=== PATIENT | female | born 1945 | race Caucasian/White ===

== ENCOUNTER 2023-08-29 16:08 | Emergency (ER) | payer MEDICARE, OTHER, SELFPAY ==
[2023-08-29 16:20] VITALS: BP 134/74; PULSE 81; RESP 20; TEMP 36.6; O2SAT 97; BMI 26.0
--- NOTE | 2023-08-29 17:42 | ED.EXTPRO1 ---
Documented by User: Belinda Guerraey 08/29/23 17:52 HPI - Extremity Problem General Chief complaint: Extremity Problem, Nontraumatic Stated complaint: LUMP right leg Time Seen by Provider: 08/29/23 17:35 Source: patient Mode of arrival: walk-in Limitations: no limitations History of Present Illness HPI Narrative: 78-year-old female presents here with a chief complaint of a bruise to the right lower pardo region. She states when she got out of the shower earlier today and she noticed a lump on her leg. She does take eloquis for CAD, coronary artery disease She has no acute bleeding elsewhere. She was concerned because she has swelling to the anterior portion of her pardo. Since waiting in the emergency room today swelling has decreased in size that she feels better. She has no pain. She has no other complaints. She states she wanted confirmation that her leg was fine. Related Data Allergies Allergy/AdvReac Type Severity Reaction Status Date / Time Penicillins Allergy Severe Verified 08/29/23 16:19 Review of Systems ROS Narrative All Systems are negative except as noted/marked.All systems reviewed and otherwise negative PFSH PFSH Social History Smoking status: Former smoker Exam Narrative Exam Narrative: Nurses note and vital signs reviewed and patient is not hypoxic. General: The patient appears well and in no apparent distress. Patient is resting comfortably on cart. Skin: Warm, dry, no pallor noted. ecchymosis to anterior pardo. Head: Normocephalic, atraumatic Cardiovascular: Regular Rate and Rhythm Respiratory: Patient is in no distress, no accessory muscle use, lungs are clear to auscultation, no wheezing, rales or rhonchi Musculoskeletal: swelling to right anterior pardo, consistent with hemotoma, bruise, no calf pain tenderness or swelling. The patient has no evidence of calf tenderness, no pitting edema, symmetrical pulses noted bilaterally Neurological: A&O x4, normal speech Psychiatric: Cooperative Constitutional Vital Signs, click to edit/add: Last Vital Signs Temp 98 F 08/29/23 16:20 Pulse 81 08/29/23 16:20 Resp 20 08/29/23 16:20 BP 134/74 08/29/23 16:20 Pulse Ox 97 08/29/23 16:20 O2 Del Method Room Air 08/29/23 16:20 Course Vital Signs Vital signs: Vital Signs Temperature 98 F 08/29/23 16:20 Pulse Rate 81 08/29/23 16:20 Respiratory Rate 20 08/29/23 16:20 Blood Pressure 134/74 08/29/23 16:20 Pulse Oximetry 97 08/29/23 16:20 Oxygen Delivery Method Room Air 08/29/23 16:20 Temperature 98 F 08/29/23 16:20 Pulse Rate 81 08/29/23 16:20 Respiratory Rate 20 08/29/23 16:20 Blood Pressure 134/74 08/29/23 16:20 Pulse Oximetry 97 08/29/23 16:20 Oxygen Delivery Method Room Air 08/29/23 16:20 MDM - Extremity (Nontraumatic) MDM Narrative Medical decision making narrative: 78-year-old female is visiting from out of town and states she was concerned when she noticed swelling to the anterior pardo. She is on eloquis. She states she was getting out of the shower and noticed a small bruising to her anterior pardo. Since being here in the emergency room for past hour, , the swelling has improved. Patient feels well. She's had no other injury, trauma bruising or bleeding. Remainder extremity looks within normal limits. Superficial hematoma, ecchymosis is noted to right anterior pardo measuring approx 1cm, ciruclar in size. She has no pain to the extremity. No calf pain tenderness or swelling. She stable be discharged home. She'll be given instructions for hematoma, bruising. Patient told she may keep the leg elevated and use ice this evening. Patient verbalizes understanding resupply of care. Discharge Plan Discharge Chief Complaint: Extremity Problem, Nontraumatic Clinical Impression: Hematoma of leg Patient Disposition: Home, Self-Care Time of Disposition Decision: 17:41 Condition: Good Mode of Transportation: Private Vehicle Instructions: Contusion in Adults (ED) Stand Alone Forms: Portal Instructions Referrals: Derrick Das DO [Primary Care Provider] - 1 week Discharge Date/Time: 08/29/23 17:48 Documented by User: Aristides Choudhury MD 08/29/23 20:33 HPI - Extremity Problem General Chief complaint: Extremity Problem, Nontraumatic Stated complaint: LUMP right leg Time Seen by Provider: 08/29/23 17:35 Related Data Allergies Allergy/AdvReac Type Severity Reaction Status Date / Time Penicillins Allergy Severe Verified 08/29/23 16:19 PFSH PFSH Social History Smoking status: Former smoker Exam Constitutional Vital Signs, click to edit/add: Last Vital Signs Temp 98 F 08/29/23 16:20 Pulse 81 08/29/23 16:20 Resp 20 08/29/23 16:20 BP 134/74 08/29/23 16:20 Pulse Ox 97 08/29/23 16:20 O2 Del Method Room Air 08/29/23 16:20 Course Vital Signs Vital signs: Vital Signs Temperature 98 F 08/29/23 16:20 Pulse Rate 81 08/29/23 16:20 Respiratory Rate 20 08/29/23 16:20 Blood Pressure 134/74 08/29/23 16:20 Pulse Oximetry 97 08/29/23 16:20 Oxygen Delivery Method Room Air 08/29/23 16:20 Temperature 98 F 08/29/23 16:20 Pulse Rate 81 08/29/23 16:20 Respiratory Rate 20 08/29/23 16:20 Blood Pressure 134/74 08/29/23 16:20 Pulse Oximetry 97 08/29/23 16:20 Oxygen Delivery Method Room Air 08/29/23 16:20 MDM - Extremity (Nontraumatic) MDM Narrative Medical decision making narrative: 78-year-old female is visiting from out of town and states she was concerned when she noticed swelling to the anterior pardo. She is on eloquis. She states she was getting out of the shower and noticed a small bruising to her anterior pardo. Since being here in the emergency room for past hour, , the swelling has improved. Patient feels well. She's had no other injury, trauma bruising or bleeding. Remainder extremity looks within normal limits. Superficial hematoma, ecchymosis is noted to right anterior pardo measuring approx 1cm, ciruclar in size. She has no pain to the extremity. No calf pain tenderness or swelling. She stable be discharged home. She'll be given instructions for hematoma, bruising. Patient told she may keep the leg elevated and use ice this evening. Patient verbalizes understanding resupply of care. I, Dr Choudhury, have reviewed the above progress note and course of action in the ER; agree with the above. I have personally seen and evaluated this patient, gone over history and physical, and discussed disposition and treatment plan with the patient. Discharge Plan Discharge Chief Complaint: Extremity Problem, Nontraumatic Clinical Impression: Hematoma of leg Patient Disposition: Home, Self-Care Time of Disposition Decision: 17:41 Condition: Good Mode of Transportation: Private Vehicle Instructions: Contusion in Adults (ED) Stand Alone Forms: Portal Instructions Referrals: Derrick Das DO [Primary Care Provider] - 1 week Discharge Date/Time: 08/29/23 17:48
== END 2023-08-29 17:48 | disposition home or self-care (01) ==
PROVIDERS: Emergency Provider Emergency Medicine; PCP Family Medicine
DX: S80.11XA Contusion of right lower leg, initial encounter (principal); I25.10 Atherosclerotic heart disease of native coronary artery without angina pectoris; Z79.01 Long term (current) use of anticoagulants; Z87.891 Personal history of nicotine dependence
CPT/HCPCS: 99281

== ENCOUNTER 2025-08-25 19:35 | Emergency (ER) | payer OTHER, MEDICAID, SELFPAY ==
[2025-08-25 20:06] VITALS: BP 157/72; PULSE 67; TEMP 37.1; O2SAT 99; BMI 26.0
--- NOTE | 2025-08-25 20:35 | XR_ITS ---
The [address] [address] Patient Name: LUZ VELASQUEZ MRN: [id number] date: 1945 Sex: F Assigned Patient Location: ER Current Patient Location: Accession/Order Number: [id number] Exam Date: 08/25/2025 20:42 Report Date: 08/25/2025 21:10 At the request of: LEONOR SCHERER MD Procedure: XR knee LT 4V XR knee LT 4V 08/25/2025 8:55 PM SIGNS AND SYMPTOMS: ^fall, left knee pain, bruising PROTOCOL: Fall, left knee pain COMPARISON: None FINDINGS: There is narrowing of the weightbearing joint spaces with spurring greatest along the medial femoral condyle and medial tibial plateau. There is narrowing of the patellofemoral joint space with spurring at the superior pole of the patella. There is no fracture or dislocation. There is a 13 mm ossific loose body in the anterior aspect of the joint of the inferior pole of the patella. There is a small joint effusion. No soft tissue swelling. Vascular calcifications are present. XR/XR knee LT 4V IMPRESSION: No fracture or dislocation. Tricompartmental degenerative changes are noted with a small joint effusion. There is a 13 mm ossific loose body in the anterior aspect of the joint of the inferior pole of the patella. Impression dictated by: Delroy Caruso M.D. 08/25/2025 9:10 PM Dictation Location: [place] [address] Electronically authenticated by: [id number] Y Date: 08/25/2025 21:10
--- NOTE | 2025-08-25 20:35 | CT_ITS ---
The [address] [address] Patient Name: LUZ VELASQUEZ MRN: [id number] date: 1945 Sex: F Assigned Patient Location: ER Current Patient Location: Accession/Order Number: [id number] Exam Date: 08/25/2025 20:42 Report Date: 08/25/2025 21:14 At the request of: LEONOR SCHERER MD Procedure: CT head/brain wo con CT head/brain wo con 08/25/2025 8:55 PM SIGNS AND SYMPTOMS: ^fall, hit face on pavement TECHNIQUE:Multi-detector CT axial slices of the brain were obtained without IV contrast. CT was performed with one or more of the following dose reduction techniques: Automated exposure control, adjustment of the mA and/or kV according to patient size, or use of iterative reconstruction technique. COMPARISON: None. FINDINGS: There is no shift of the midline structures, acute intracranial bleeding, mass effects, or evidence of acute ischemia. Atherosclerotic changes are noted in the V4 segments of the vertebral arteries and intracranial segments of the internal carotid arteries. There is age-related cortical atrophy with periventricular white matter hypoattenuation. The ventricular system is normal in size. The brainstem and the cerebellum are unremarkable. The visualized intraorbital contents, the visualized paranasal sinuses, and the infratemporal soft tissues show no acute abnormality. The osseous structures in the skull base and the calvarium show no abnormality. CT/CT head/brain wo con IMPRESSION: No acute intracranial pathology. Chronic age-related neurodegenerative changes are noted as above. Impression dictated by: Delroy Caruso M.D. 08/25/2025 9:14 PM Dictation Location: [place] [address] Electronically authenticated by: [id number] Y Date: 08/25/2025 21:14
--- NOTE | 2025-08-25 20:36 | CT_ITS ---
The [address] [address] Patient Name: LUZ VELASQUEZ MRN: [id number] date: 1945 Sex: F Assigned Patient Location: ER Current Patient Location: Accession/Order Number: [id number] Exam Date: 08/25/2025 20:42 Report Date: 08/25/2025 21:21 At the request of: LEONOR SCHERER MD Procedure: CT cervical spine wo con CT cervical spine wo con 08/25/2025 8:55 PM SIGN AND SYMPTOMS: ^fall, head injury TECHNIQUE: Multi detector CT axial slices of the cervical spine were obtained without IV contrast. Volumetric acquisition sagittal, coronal, and 3-D reconstructions were performed and reviewed. CT was performed with one or more of the following dose reduction techniques: Automated exposure control, adjustment of the mA and/or kV according to patient size, or use of iterative reconstruction technique. COMPARISON: None. FINDINGS: There is preservation of the vertebral body heights. There is mild disc height loss at C3-C4 with moderate disc height loss at C5-C6. There is facet hypertrophy with uncovertebral joint spurring. There is a partially calcified central disc protrusion at C3-C4. No fractures or dislocations are seen. The alignment of the cervical spine is normal. The craniocervical junction is within normal limits. Degenerative changes are noted in the atlantoaxial joint. There is thickening of the transverse ligament with chondrocalcinosis suggesting underlying CPPD. The prevertebral soft tissues are within normal limits. The paraspinous soft tissues are within normal limits. Calcified plaque is noted in the carotid bifurcations. The lung apices are unremarkable. CT/CT cervical spine wo con IMPRESSION: No fracture or subluxation. Degenerative changes are noted as above. Impression dictated by: Delroy Caruso M.D. 08/25/2025 9:21 PM Dictation Location: [place] [address] Electronically authenticated by: [id number] Y Date: 08/25/2025 21:21
--- NOTE | 2025-08-25 20:37 | ED.HEATRA1 ---
HPI HPI - Head Injury General Chief complaint: Fall Stated complaint: Fall Time Seen by Provider: 08/25/25 20:30 Source: patient Mode of arrival: walk-in Limitations: no limitations History of Present Illness HPI Narrative: This 80-year-old female who is on Eliquis due to a history of heart failure is brought to the emergency department by her daughter. The patient was coming out of her house tonight and missed a step falling and striking the right side of her face on concrete. She was wearing glasses at the time. She has a contusion over the bridge of her nose and some right sided periorbital tenderness. She denies any loss of consciousness. She could not get up independently and crawled back into the house where her daughter helped her up onto the couch. She did fall on her right knee and has some bruising to the right knee as well. She is ambulatory with a walker. She denies any chest pain or shortness of breath. She denies any dizziness leading to her fall. Related Data Home Medications ?Medication ?Instructions ?Recorded ?Confirmed acetaminophen 500 mg tablet 500 mg PO Q6H PRN pain 08/25/25 08/25/25 (Tylenol Extra Strength) alprazolam 0.5 mg tablet mg 08/25/25 apixaban 5 mg tablet (Eliquis) mg 08/25/25 clopidogrel 75 mg tablet mg 08/25/25 famotidine 20 mg tablet (Pepcid) 20 mg PO DAILY 08/25/25 08/25/25 furosemide 40 mg tablet mg 08/25/25 levothyroxine 25 mcg tablet mcg 08/25/25 metoprolol succinate 50 mg mg PO 08/25/25 tablet,extended release 24 hr nicotine 14 mg/24 hr daily 1 patch transdermal DAILY 08/25/25 08/25/25 transdermal patch ondansetron 4 mg disintegrating mg 08/25/25 tablet potassium chloride 20 mEq meq PO 08/25/25 tablet,extended release(part/cryst) pravastatin 40 mg tablet mg 08/25/25 sacubitril 97 mg-valsartan 103 mg tab 08/25/25 tablet Allergies Allergy/AdvReac Type Severity Reaction Status Date / Time Penicillins Allergy Severe Rash Verified 08/25/25 20:06 erythromycin base Allergy Mild Difficulty Verified 08/25/25 20:06 Breathing albuterol Allergy heart Verified 08/25/25 20:06 racing atorvastatin Allergy muscle pain Verified 08/25/25 20:06 ciprofloxacin Allergy Abdominal Verified 08/25/25 20:06 Pain hydrocodone Allergy Vomiting Verified 08/25/25 20:06 meperidine Allergy vomiting Verified 08/25/25 20:06 simvastatin Allergy muscle pain Verified 08/25/25 20:06 Sulfa (Sulfonamide Allergy hives Verified 08/25/25 20:06 Antibiotics) Opioid HPI Opioid Management Most Recent Pain and Opioid Data: Last Pain Scale 5 Today, 20:06 Review of Systems ROS Status of ROS 10 or more systems reviewed and unremarkable except as noted in history and below [facility] Social History Smoking status: Former smoker Little interest or pleasure in doing things: not at all Feeling down, depressed, or hopeless: not at all Exam Narrative Exam Narrative: Vital signs and Nursing Notes reviewed: Patient is afebrile with a normal pulse, blood pressure is mildly elevated 157/72, she is not hypoxic with pulse ox of 99% on room air General: Awake, alert, oriented, no acute distress, ambulatory with a walker, GCS 15 HEENT: Normocephalic, small abrasion of the bridge of the nose and mild right periorbital tenderness without ecchymosis or notable bruising, extraocular muscles are intact, no nasal bleeding, no dental injury Neck: Supple, no midline bony vertebral tenderness or step-off Chest: Lungs are clear to auscultation with good air entry, there is no wheezing rhonchi or rales appreciated no accessory muscle use, patient is speaking in complete sentences-no chest wall tenderness to palpation CVS: Regular rate and rhythm S1-S2, no murmurs rubs or gallops, pulses are brisk and equal bilaterally ABD: Soft, nondistended, nontender, no rebound guarding or rigidity, bowel sounds are normal, no pulsatile masses appreciated Extremities: Moving all extremities, patient completely flexes her right knee to get onto the stretcher. There is no right knee tenderness or notable deformity. She has tenderness to the left anterior knee with mild bruising. Knee joint is stable with no bony deformity. Skin: Normal in appearance without rash,pallor, petechiae or purpura Neuro: No focal deficits Constitutional Vital Signs, click to edit/add: Last Vital Signs Temp 98.7 F 08/25/25 20:06 Pulse 67 08/25/25 20:06 Resp 18 08/25/25 20:06 BP 157/72 H 08/25/25 20:06 Pulse Ox 99 08/25/25 20:06 O2 Del Method Room Air 08/25/25 20:06 Course Vital Signs Vital signs: Vital Signs Temperature 98.7 F 08/25/25 20:06 Pulse Rate 67 08/25/25 20:06 Respiratory Rate 18 08/25/25 20:06 Blood Pressure 157/72 H 08/25/25 20:06 Pulse Oximetry 99 08/25/25 20:06 Oxygen Delivery Method Room Air 08/25/25 20:06 Temperature 98.7 F 08/25/25 20:06 Pulse Rate 67 08/25/25 20:06 Respiratory Rate 18 08/25/25 20:06 Blood Pressure 157/72 H 08/25/25 20:06 Pulse Oximetry 99 08/25/25 20:06 Oxygen Delivery Method Room Air 08/25/25 20:06 MDM - Head Injury MDM Narrative Medical decision making narrative: This 80-year-old female with a history of heart disease who is on Eliquis is brought to the emergency department by her daughter after she fell going down a stair outside at her house. She states she forgot the stair was there and fell forward striking her face on the concrete. She was wearing her glasses at the time and has some right periorbital tenderness. She also has some left knee tenderness and bruising. She denies any loss of consciousness. Her neuroexam is normal. She was ambulatory to room 7 with her walker. She was medicated with Tylenol and CT scan of the head, cervical spine and x-ray of the left knee was ordered. CT scan of the head and neck is negative for acute findings and x-ray of the left knee shows no acute fracture but loose body posteriorly. Her left knee was placed in an Goyo wrap for comfort. The patient states that she has a prior history of a knee injury to the left knee. She remained ambulatory in the emergency department and was discharged home with her son. Head injury instructions were given to the patient and her family. Imaging Data CT scan - head: Radiologist's impression: ITS Impressions Head CT 08/25/25 20:35 IMPRESSION: No acute intracranial pathology. Chronic age-related neurodegenerative changes are noted as above. Impression dictated by: Delroy Caruso M.D. 08/25/2025 9:14 PM Dictation Location: [facility] Electronically authenticated by: [id number] Y Date: 08/25/2025 21:14 Knee X-Ray 08/25/25 20:35 IMPRESSION: No fracture or dislocation. Tricompartmental degenerative changes are noted with a small joint effusion. There is a 13 mm ossific loose body in the anterior aspect of the joint of the inferior pole of the patella. Impression dictated by: Delroy Caruso M.D. 08/25/2025 9:10 PM Dictation Location: [facility] Electronically authenticated by: [id number] Y Date: 08/25/2025 21:[address] 08/25/25 20:36 IMPRESSION: No fracture or subluxation. Degenerative changes are noted as above. Impression dictated by: Delroy Caruso M.D. 08/25/2025 9:21 PM Dictation Location: [facility] Electronically authenticated by: [id number] Y Date: 08/25/2025 21:21 Discharge Plan Discharge Chief Complaint: Fall Clinical Impression: Fall from standing, Contusion of face, Contusion of knee Patient Disposition: Home, Self-Care Time of Disposition Decision: 21:51 Condition: Good Prescriptions / Home Meds: No Action furosemide 40 mg tablet pravastatin 40 mg tablet metoprolol succinate 50 mg tablet extended release 24 hr PO clopidogrel 75 mg tablet levothyroxine 25 mcg tablet alprazolam 0.5 mg tablet potassium chloride 20 mEq tablet,ER particles/crystals PO ondansetron 4 mg tablet,disintegrating Eliquis 5 mg tablet sacubitril-valsartan 97-103 mg tablet famotidine [Pepcid] 20 mg tablet 20 mg PO DAILY nicotine 14 mg/24 hr patch 24 hour 1 patch transdermal DAILY acetaminophen [Tylenol Extra Strength] 500 mg tablet 500 mg PO Q6H PRN (Reason: pain) Print Language: Amharic Instructions: Fall Prevention for Older Adults (ED), Contusion in Adults (ED), Facial Contusion (ED) Referrals: Derrick Das DO [Primary Care Provider] - 1 week Discharge Date/Time: 08/25/25 21:59
--- OUTSIDE RECORDS SUMMARY | 2025-08-25 21:35 | XMS_ITS | Clinical Summary ---
Author Organization [facility] Address [address] [place] [id number] Care Team Providers Care Registered Radiologic Technologist Name Role Phone TyrellDerrick martin Renetta MOREIRA Primary Care Provider [phone] Teodoro Cueva MD Unavailable Breana Kunz MD Unavailable Allergies Active AllergyReactionsCriticalityNoted DateCommentsAlbuterolOther: See Comments 05/08/2021 shaking, nervous, mental status changes CiprofloxacinGI Upset05/08/2021Meperidine (Pf)Wbfehkvu98/07/2012Erythromycin Shortness of Scbxtv5205/15/2012Hydrocodone-DqjaqaarqtvauGulrcspj36/07/2012 Atorvastatin CalciumOther: See Llofdtpo60/07/2012 back muscles tightened up WfdpmyplUgjxxddr95/07/2012Penicillin GRash05/01/2012Sulfa (Sulfonamide Antibiotics)Hives05/16/2012SimvastatinOther: See Ugbomrxl90/07/2012 back muscles tighten up Medications MedicationSigDispense QuantityRefillsLast FilledStart DateEnd DateStatus sucralfate (CARAFATE) 1 gram tablet Take 1 tablet by mouth once daily.07/17/2021ctive nicotine (NICODERM) 21 mg/24 hr Apply 1 Patch as directed every 24 hours.07/17/2021ctive levothyroxine (SYNTHROID) 25 mcg tablet Take 0.5 tablets by mouth DAILY (6 AM). 30 tablet 10/13/2021ctive CPAP/BIPAP/OTHER Type .CPAPSettings into a note to see current settings/supplies/DME information. 1 Each /03/2050Active ALPRAZolam (XANAX) 0.5 mg tablet Take 0.5 mg by mouth four times daily.4Active ACETAMINOPHEN, BULK, MISC as needed.Active pravastatin (PRAVACHOL) 80 mg tablet Indications:Hyperlipidemia with target low density lipoprotein (LDL) cholesterol less than 70 mg/dLTake 1 tablet by mouth daily at bedtime. 90 tablet 503/6Active sacubitril-valsartan (ENTRESTO) 97-103 mg tablet Indications:Chronic diastolic heart failure (HCC)Take 1 tablet by mouth two times a day. 180 tablet 5Active metoprolol succinate ER (TOPROL XL) 50 mg 24 hr tablet Indications:Chronic diastolic heart failure (HCC)Take 1 tablet by mouth two times a day. 60 tablet 1105Active potassium chloride ER (KLOR-CON M20) 20 mEq tablet Indications:Chronic diastolic heart failure (HCC)Take 1 tablet by mouth once daily. 90 tablet 5Active clopidogrel (PLAVIX) 75 mg tablet Indications:Coronary artery disease involving redding coronary artery of redding heart, unspecified whether angina presentTake 1 tablet by mouth once daily. 90 tablet 5Active apixaban (ELIQUIS) 5 mg tab(s) Take 1 tablet by mouth two times a day. 180 tablet 5Active multivitamin tablet Take 1 tablet by mouth once daily.Active furosemide (LASIX) 40 mg tablet Indications:Chronic diastolic heart failure (HCC)Take 1 tablet by mouth once daily. 90 tablet 5Active Active Problems Patient Care Coordination No te Formatting of this note migh t be different from the original. Presentation/Indication for admission/procedure: NSTEMI (non-ST elevated myocardial infarction) ([facility]) [I21.4] Admit date: 10/09/2021 LVEF: 45% RVEF: mild Cards: baljit Cath: PCI 01/26 PMH/PSH: HTN, HLD, paroxysmal AF s/p PVI 07/19/21, CAD s/p prior CABG (2003 with YEAGER-LAD, SVG-LCx,SVG-PDA followed by re-do in 2011 with ANITA-LCx, SVG-PDA) as well as multiple rounds of PCI, tobacco abuse, SARS CoV2 pneumonia in 05/2021 Covid: pos TSH: 2.3 A1c: 6.1 LDL: 156 NT: 7984 Procedure/OR performed (including complications): echocardiogram Brief Hospital Course/Narrative: pt presented to outside hospital with complaints of SOB and vomiting after taking a muscle relaxant. EMS arrived and noted that she was hypoxic. She was placed on BiPAP. In the ER she was tested for COVID which was positive. She was given IV lasix and started on decadron and remdisivir. HS trop waselevated and downtrended. Was transferred to [facility] for ? NSTEMI although had no chest pain. Issues to communicate: ID consulted and recommended holding meds, monitor resume entresto plan discharge on Friday follow up requested with DR Goff will need labs checked to monitor creat start torsemide ProblemNoted DateDiagnosed DateVapes nicotine containing zcmzlrkne47/10/2024 Chronic obstructive pulmonary csdmjsy93/02/2024Chronic rjqxyoomhavgtho00/09/2021 COVID-19 virus hijhpifu79/21/2021 Overview (10/13/2021): History: previous COVID pneumonia 05/29, not vaccinated Assessment: denies SOB although requiring oxygen Plan: hold on treatment monitor CHF (congestive heart failure)1Pulmonary insufficiency following ymtifdr5405/27/2012 Overview (05/29/2012): On 2L per NC, -481 ml/24 hrs, 65.2 kg (-3.5 kg preop). CXR 05/27 showed patchy poorly defined infiltrates, most likely secondary to atelectasis, persist at both lung bases, no pleural effusion or pneumothorax. On IV lasix, Will transition to PO lasix, Enc OOB, amb, C&DB, PEP. Xacxapgmtgjz18/13/2012 Overview (05/29/2012): WBC 16.02, stable. Afebrile. Infiltrates improving on CXR. ID consulted pt finished IV levequin, IDsigned off DVT (deep venous thrombosis)05/21/2012 Overview (05/29/2012): RIJ DVT seen in right during attempted central access. No AC at this time No further UE U/S per CTS after discussion w/ Dr. Johnson. AF (paroxysmal atrial fibrillation)05/20/2012 Overview (10/13/2021): had ablation 07/18/[address] Kunz remains SR cont toprol BID HTN (hypertension)05/19/2012 Overview (05/29/2012): PMHX of HTN, preop on BB, daniela, norvasc, isosorbide. Currently normotensive on lasix, BB. Will change lasix to PO GERD (gastroesophageal reflux disease)05/19/2012 Overview (05/29/2012): H/o GERD per patient requiring 3-4 pillows at hs, currently asymptomatic, on Protonix Panic yujttmu7105/19/2012 Overview (05/29/2012): Stated h/o panic attacks managed w/ Xanax at home, currently anxiety improved on scheduled xanax Carotid arterial snxdbvf9405/16/2012 Overview (05/29/2012): Pre-op studies LARISA 20-39%, LICA 60-79% w/ L SC 50-99%, on ASA, statin, Plavix PAD (peripheral artery disease)05/16/2012 Overview (05/29/2012): Pre-op CRISPIN: R 0.88, L 0.84 c/w mild PAD, ASA, smoking cessation, plavix S/P CABG (coronary artery bypass graft)05/01/2012 Overview (05/19/2012): See CAD NSTEMI (non-ST elevated myocardial infarction)05/01/2012 Overview (10/13/2021): per outside report based on cardiac enzymes. no EKG changes noted trop peaked at 0.076 denies any chsest pain likely not an PA, more likely flash pulmonary edema following vomiting S/P coronary artery stent stiukctxl65/24/2012 Overview (05/01/2012): SCOTTY of redding CX Eaxsnibfkmwl21/24/2012 Overview (05/23/2012): Home managed w/ metoprolol, low dose Lisinopril, Norvasc 10 and nitrates w/ Ranexa contribution. Continue PO Lopressor, uptitrate dose as tolerated Reassess Lisinopril and Norvasc as needed Lypwunmgcxqrsu02/24/2012 Overview (10/13/2021): History: previously on zocor, lipitor. was stopped d/t severe muscle pains. Assessment: Last set of lipids revealed: Total Chol 247: HDL 58: LDL 156: TG 163 Plan: cont crestor at 10 mg with plans to increase as tolerated as outpt. monitor lipids 6-8 wks Norqott4105/01/2012 Overview (10/13/2021): H/o 1ppd x 34yrs, had weaned to 5 cigarettes per day since PA in February, transitioned to electronic cigarettes just before surgery. Smoking cessation education, CAD (coronary artery disease), redding coronary bijygh2904/30/2012 Overview (10/13/2021): History: CAD s/p prior CABG (2002 with YEAGER-LAD, SVG-LCx, SVG-PDA followed by re-do in 2011 with ANITA-LCx, SVG-PDA) as well as multiple rounds of PCI Assessment: denies chest pain Plan: cont plavix,, BB Resolved Problems ProblemNoted DateDiagnosed DateResolved DateAcute on chronic systolic congestive heart /01/2024 Overview (10/13/2021): History: prior EF 55% in ~ 2011, reduced in 2019. on entresto, lasix, BB Assessment: no edema noted. Plan: cont BB, entresto start torsemide Malnutrition of mild jjmnat25/trial igdhwfyvpbos76/09/2021 06/20/2021UTI (urinary tract infection)/Nutrition deficiency due to insufficient food Overview (05/23/2012): Tolerating TF via [place] at goal rate, 45 cc/hr Nutrition consult Pneumothorax, acute Overview (05/21/2012): Small right apical. CT in place. Abixskf09 Overview (05/21/2012): Pt cont. to have low paO2. Now tolerating high flow face mask. Cont. int. Bipap. CXR mildly improved. Cont. aggressive BP hygiene. Wean O2 as joel. Post-op pain Overview (05/23/2012): 05/20: Severe pain secondary to chest tube placement. Well relieved with intermittent Dilaudid. IV Fentanyl gtt while intubated Patient nods yes to comfort on exam. Yrfkzi61 Overview (05/19/2012): Verbalizes severe nausea with IV narcotics. Cont. phenergan ATC and reglan with mod. relief. Respiratory failure, acute Overview (05/23/2012): Readmit to CVICU with hypoxia and acute respiratory failure 05/21. ETT, bronch, BAL, blood cultures and procalcitonin sent. Continue full vent support, FiO2 40%. Albuterol/Atrovent therapy Vent weaning trials WQHHGKF95 Overview (05/29/2012): Indication for Surgery: Symptomatic CAD Echo: Preop: LVEF 63% RVF: nml Postop: LVEF 60% RVF: nml PMH: CAD s/p CABG x 3 08/10: YEAGER>LAD, SVG>lat Cx, SVG>PDA; NSTEMI 03/07/12 OSH [facility] SCOTTY Cx; HTN, HPL, statin intolerant, current smoker 1 ppd x 34 yrs, recent electronic cigarette; PAD; GERD, Panic attacks. Surgery 05/18/2012: Re-do CABG x2: ANITA>lat Cx, SVG>PDA 05/20/2012: CMET activation on RNF for rapid AF, hypoxia, and PTX. Re-admitted to ICU CVICU: hypoxia with diff wean to extubate, a-fib (amio bolus), infiltrate on CXR, ID following Plan: -WBCs trending down, ID sign off, d/c levaquin 05/27 -Cont to wean O2, enc amb., -NSR, cont amio, inc BB, re-start plavix for SCOTTY, echo repeated per Dr. Meek -From [place], [place], solid waste facility operator for SNF, to be discharged later this PM (05/29) Stress fylwkizoxjvvo22 Overview (05/27/2012): On SSI req occasional coverage, cont to monitor BG Mechanically assisted svozimupqon37 Overview (05/18/2012): Current smoker. Will initiate bronchodilators as needed. Grade I airway. WTE once HD stable Preop hzluviw34 Overview (05/17/2012): Images from the original note were not included. [facility] PRE-OP CHECKLIST Surgeon: Adam Johnson M.D. Informed Consent Completed: completed STS Score: 1.4% CAD: Yes - CAD on Problem List: Yes Is intended procedure a CABG: Yes - is a beta goran ordered? Yes~toprol H & P completed: Yes PA/LAT: Completed CT:completed MRI: N/A LE US: N/A Cath: Yes - reviewed: Yes Echo:completed EKG: Completed EF %: na PI's: Completed Carotid: Completed Mapping: Pending Dental: N/A PFT's: Completed Basename 05/15/12 0812 WBC 8.53 HB 13.5 HCT 41.2 PLT 312 INR 1.0 CREAT -- UA: pos, culture: Culture : <10,000 CFU/ml Possible Enterococcus(*) <10,000 CFU/ml Normal Urogenital charlene (no treatment necessary). ABO/ABO Confirmed: Yes Blood ordered: Yes SA Swab: Yes - results: neg Last Dose of Anticoagulation: Plavix 05/12. Integrilin off at 2000 Op Note: N/A Pacemaker Check: N/A Consults: none DM: No Cardiac Surgical prep: N/A SIGNATURE: Kiki Bui MS, PA-C CHECKED BY: giuseppe bridges DATE of SERVICE: 05/15/2012 TIME of SERVICE: 1:51 PM Nhtesv91 Overview (05/17/2012): Apparently had UTI at OSH during stay in 03/07/2012 and had abx course. Has WBC and leukocyte esterase positive in urine now but is asx. Check urine culture to make sure this isn't sterile pyuria or a more resistant organism. Abx therapy per culture and sensitivities. 05/16: culture pending. Will hold off on ATBs until cultured Encounters DateTypeDepartmentCare EcanGcosryfubar27/24/2025Refill Cardiology [address] [place] [address] Beronica Leigh, MEMS ENGINEER.ORTHOPEDICALLY IMPAIRED TEACHER Refill Requestfrom Last 3 Months Family History Medical HistoryRelationCommentsCoronary Artery DiseaseBrotherCoronary stents[other]BrotherNo PA, aliveNo CAD[other]FatherCancerMotherNo CADRelation StatusCommentsBrotherAliveFatherDeceasedMotherDeceased Social History Tobacco UseTypesPacks/DayYears UsedDateSmoking Tobacco: LbbxwjSxceeitwtp407 05/18/1987 - 1Smokeless Tobacco: Never Tobacco Cessation:Counseling Given: Not Answered Comments:electronic cigarettes, 2 cigarettes per day Alcohol UseStandard Drinks/WeekCommentsNo0 (1 standard drink = 0.6 oz pure alcohol)Social Connection and Isolation PanelAnswerDate RecordedIn a typical week, how many times do you talk on the phone with family, friends, or neighbors?More than three times a week01/16/2023How often do you get together with friends or relatives?Once a week09/23/2022How often do you attend mosque or latter-day services?1 to 4 times per year09/23/2022o you belong to any clubs or organizations such as mosque groups, unions, fraternal or athletic groups, or school groups?Yes09/23/2022How often do you attend meetings of the clubs or organizations you belong to?1 to 4 times per year09/23/2022re you , , , , never , or living with a partner? 09/23/2022UDIT-CAnswerDate RecordedQ1: How often do you have a drink containing alcohol?Never09/23/2022Q2: How many drinks containing alcohol do you have on a typical day when you are drinking?Patient does not drink09/23/2022Q3: How often do you have six or more drinks on one occasion?Never09/23/2022Overall Financial Resource Strain (CARDIA)AnswerDate RecordedHow hard is it for you to pay for the very basics like food, housing, medical care, and heating?Hard09/23/2022HQ-2 AnswerDate RecordedPHQ-2 vlocz456Finjordan valley [facility] [place] of Occupational Health - Occupational Stress QuestionnaireAnswerDate RecordedDo you feel stress - tense, restless, nervous, or anxious, or unable to sleep at night because your mind is troubled all the time - these days?To some qgmplg3609/23/2022Exercise Vital SignAnswerDate RecordedOn average, how many days per week do you engage in moderate to strenuous exercise (like a brisk walk)?0 days09/23/2022On average, how many minutes do you engage in exercise at this level?0 min09/23/2022Hunger Vital SignAnswerDate RecordedWithin the past 12 months, you worried that your food would run out before you got the money to buymore.Sometimes true09/23/2022 Within the past 12 months, the food you bought just didn't last and you didn't have money to get more.Sometimes true09/23/2022RAPARE - TransportationAnswer Date RecordedIn the past 12 months, has lack of transportation kept you from medical appointments or from getting medications?No09/23/2022In the past 12 months, has lack of transportation kept you from meetings, work, or from getting things needed for daily living?No09/23/2022Housing Stability Vital SignAnswer Date RecordedIn the last 12 months, was there a time when you were not able to pay the mortgage or rent on time?No09/23/2022In the last 12 months, how many places have you lived?In the last 12 months, was there a time when you did not have a steady place to sleep or slept in ashelter (including now)?No 09/23/2022rea Deprivation IndexAnswerDate RecordedNational Score (1-100), lower number is lower jyvm812201/28/2023State Score (1-10), lower number is lower risk6 01/28/2023ata from: https://www.neighborhoodatlas.medicine.[facility].edu/. Last address used for [address] regnantCommentsNoSex and Gender InformationValueDate RecordedSex Assigned at MqyxhAjxxht54/21/2021 10:49 PM EDTLegal QbdQdmwuz42/02/2012 10:00 AM ESTGender IdentityFemale 06/28/2021 10:49 PM EDTSexual OrientationNot on file Last Filed Vital Signs Vital SignReadingTime TakenCommentsBlood Wvuigmfy472/8208 2:49 PM EDT Ykrqa132904/20/2025 2:49 PM VMECpussguktkj30 ??C (98.6 ??F)01/08/2024 3:43 PM EDT Respiratory Riye156610/13/2021 1:47 PM ESTOxygen Nklofcebsk10%04/20/2025 2:49 PM EDTInhaled Oxygen Concentration--Pwkmqc20 kg (156 lb 8.4 oz)04/20/2025 2:49 PM HLEKwrguc582.1 cm (5' 3.8 )09/16/2024 1:47 PM ESTBody Mass Index27.04009/16/2024 1:47 PM EST Plan of Treatment DateTypeDepartmentCare Team (Latest Contact Info)Hucjqxfiuhg06/12/2026 2:00 PM ESTOffice Visit Cardiology [id number] [facility] [place] [address] [place] [address] [facility] [place] [address] Bilateral carotid artery stenosis [I65.23]10/21/2025 2:30 PM ESTOffice Visit Cardiology [address] [facility] [place], [place] [phone] Nabil Goff, [address] [place], [place] [phone] Return in about 27 weeks (around 10/26/2025).Health MaintenanceDue DateLast Done CommentsDepression Ltjmiaqsk11/08/1964DTaP,Tdap,Td Vaccine (1 - Tdap)1965 Pneumococcal Vaccine: 50+ (1 of 2 - PCV)1965Shingrix Vaccine (1 of 2) 02/14/1996Bone Density Zoeismetu49/08/2011RSV Vaccine (1 - 1-dose 75+ series) 2021nnual PCP Team Chronic Disease Visit3Advance Directive Nvlttlsflh43/01/2025Medicare Advantage Annual Wellness Visit09/08/2024 Covid-19 Vaccine ( - season)2025Influenza Vaccine (#1)2025 12/21/2018LDL Nijklczptfs71/02/202609/10/2024, 04/07/2024, 12/14/2021, Additional history existsDiabetes Yaxaqxeyq85/31/74133612/06/2024, 04/07/2024, 03/12/2024, Additional history exists Procedures Procedure NamePriorityDate/TimeAssociated DiagnosisCommentsLIPID PANEL, FASTING Nhbuvut8105/10/2025 1:51 PM EDT Hyperlipidemia with target low density lipoprotein (LDL) cholesterol less than 70 mg/dL BASIC METABOLIC MEWDNLxyaicu46/31/2025 3:09 PM EDT Chronic diastolic heart failure (HCC) from Last 3 Months or Most Recently Relevant to Health Maintenance Results * (ABNORMAL) LIPID PANEL BASIC (05/10/2025 1:51 PM EDT)ComponentValueRef Range Test MethodAnalysis TimePerformed AtPathologist SignatureCholesterol, Ezyem671 <200 mg/dL05/11/2025 9:28 AM [facility]: <200 mg/dL, Desirable 200-239 mg/dL, Borderline high >239 mg/dL, High Ldjkwzhxhbrl78<150 mg/dL05/11/2025 9:28 AM [facility] Comment: <150 mg/dL, Normal 150-199 mg/dL, Borderline high 200-499 mg/dL, High >499 mg/dL, Very high HDL Plvhtbfhtot97>39 mg/dL05/11/2025 9:28 AM [facility] Comment: 40-59 mg/dL, Acceptable >59 mg/dL, High: Negative risk factor for coronary heart disease <40 mg/dL, Low: Positive risk factor for coronary heart disease LDL Cholesterol, Cgupqtnbmk231(H)<100 mg/dL05/11/2025 9:28 AM [facility] LABComment: <100 mg/dL, Optimal 100-129 mg/dL, Near optimal/above optimal 130-159 mg/dL, Borderline high 160-189 mg/dL, High >189 mg/dL, Very high Secondary prevention optimal LDL Cholesterol levels are recommended to be <70 mg/dL LDL cholesterol is calculated using the Molina-NIH equation. Non HDL Wybgraxtcne239(H)<130 mg/dL05/11/2025 9:28 AM [facility] LABComment: <130 mg/dL, Optimal 130-159 mg/dL, Near optimal/above optimal 160-189 mg/dL, Borderline high 190-219 mg/dL, High >219 mg/dL, Very high Secondary prevention optimal non HDL Cholesterol levels are recommended to be <100 mg/dL VLDL Ijtkcygxxbh65<30 mg/dL05/11/2025 9:28 AM [facility] LABTC:HDL Ratio3.96<5.10005/11/2025 9:28 AM [facility] LDL:HDL Ratio2.63(H)<2.54005/11/2025 9:28 AM [facility]TCD[facility] Comment: Reference: 1. National Cholesterol Education Program ATP III Guideline At-A-Glance Quick Desk Reference: National Heart, Lung, and Blood [place]. National Institutes of Health. 2001: NIH Publication No. 01-3305. 2. An International Atherosclerosis Society position paper: global recommendations for the management of dyslipidemia: executive summary, Atherosclerosis. 2014: 232(2):410-413. Fasting Nnof56sae60/03/2025 9:28 AM EDTST. [facility] Specimen (Source)Anatomical Location / LateralityCollection Method / Volume Collection TimeReceived TimeBloodBLOOD SPECIMEN / UnknownVenipuncture / Unknown 05/10/2025 1:51 PM EDT05/10/2025 1:51 PM EDT Narrative Authorizing ProviderResult TypeResult StatusKenvickie Goff DOLABORATORYFinal ResultPerforming OrganizationAddressCity/State/ZIP CodePhone Number [facility] [address] [address], [facility] [address] [place] [address] * (ABNORMAL) BASIC METABOLIC PANEL (12/06/2024 3:09 PM EDT)ComponentValueRef RangeTest MethodAnalysis TimePerformed AtPathologist NgvprumheEltdlor468(H)74 - 99 mg/dL12/06/2024 3:33 PM EDTST. MARY'S [facility] LABComment: The [place] Diabetes Association (ADA) provides guidance for cutoff values for fasting glucose andrandom glucose. The ADA defines fasting as no caloric intake for at least 8 hours. Fasting plasma glucose results between 100 to 125 mg/dL indicate increased risk for diabetes (prediabetes). Fasting plasma glucose results greater than or equal to 126 mg/dL meet the criteria for diagnosis of diabetes. In the absence of unequivocal hyperglycemia, results should be confirmed by repeat testing. In a patient with classic symptoms of hyperglycemia or hyperglycemic crisis, random plasma glucose results greater than or equal to 200 mg/dL meet the criteria for diagnosis of diabetes. Reference: Standards of Medical Care in Diabetes 2016, [place] Diabetes Association. Diabetes Care. 2016.39(Suppl 1). XMU436 - 21 mg/dL03/ 3:33 PM [facility] Creatinine1.11(H)0.58 - 0.96 mg/dL12/06/2024 3:33 PM [facility] OCRNskzuq341(L)136 - 144 mmol/L12/06/2024 3:33 PM [facility] LABPotassium4.13.7 - 5.1 mmol/L12/06/2024 3:[address] [facility] HMRYdkttjhc77(L)98 - 107 mmol/L12/06/2024 3:33 PM [facility] DRSQP54449 - 30 mmol/L12/06/2024 3:33 PM [facility] LABAnion Iek354 - 15 mmol/L12/06/2024 3:33 PM [facility] LABCalcium, Total10.4(H)8.5 - 10.2 mg/dL12/06/2024 3:33 PM [facility] LABEstimated Glomerular Filtration Rate51(L)>=60 mL/min/1.73m 12/06/2024 3:33 PM [facility] LABComment:Estimated Glomerular Filtration Rate (eGFR) is calculated using the 2020 CKD-EPI creatinine equation. This equation utilizes serum creatinine, sex, and age as parameters. The creatinine assay has traceable calibration to isotope dilution- mass spectrometry. Refer to KDIGO guidelines for clinical interpretation. In patients with unstable renal function, e.g. those with acute kidney injury, the eGFRmay not accurately reflect actual GFR.Specimen (Source)Anatomical Location / LateralityCollection Method / VolumeCollection TimeReceived TimeBloodBLOOD SPECIMEN / UnknownVenipuncture / Akybeca3212/06/2024 3:09 PM EDT12/06/2024 3:09 PM EDT Narrative Authorizing ProviderResult TypeResult StatusLavisa Salas MEMS ENGINEER.CNPLABORATORY Final ResultPerforming OrganizationAddressCity/State/ZIP CodeMemorial [facility] Number [facility] [address] [place] [address] from Last 3 Months or Most Recently Relevant to Health Maintenance Insurance Advance Directives TypeDate RecordedPatient RepresentativeExplanationAdvance Directive(s)04/04/2022 3:24 PM * Full Code (Latest Code Status on File) Date ActivatedDate InactivatedComments10/11/2021 7:38 AM10/13/2021 9:13 PMQuestion AnswerCommentsFull Code Order Discussed With:* Patient * Full Code Date ActivatedDate ZrunnfykdstIlvyizyx51/9/2021 4:49 PM10 10:18 PM QuestionAnswerCommentsFull Code Order Discussed With:* Patient Surrogate Decision Maker Name:* Patient's decision confirmed with daughter per patient wishes Care Teams Team MemberRelationshipSpecialtyStart DateEnd Date Drerick Das DO [address] [place] [address] PCP - GeneralFamily Medicine05/08/21 Teodoro Cueva MD [facility] [place] [address] ReferringCardiology05/08/21 Breana Kunz MD [address] [place] [address] Primary Staff PhysicianCardiology05/08/21
--- OUTSIDE RECORDS SUMMARY | 2025-08-25 21:35 | XMS_ITS | Clinical Summary ---
Author Organization [facility] Address [address] [place] [address] Care Team Providers Care Coat Repair Inspector Name Role Phone Unavailable Primary Care Provider Unavailabl e Social History Tobacco UseTypesPacks/DayYears UsedDateSmoking Tobacco: Never Assessed CommentsUnknownSex and Gender InformationValueDate RecordedSex Assigned at Not on fileLegal JmeDcoyae11/15/2023 6:45 PM EDTGender IdentityNot on fileSexual OrientationNot on file Plan of Treatment Not on file
== END 2025-08-25 21:59 | disposition home or self-care (01) ==
PROVIDERS: Emergency Provider Emergency Medicine; PCP Family Medicine
DX: S00.83XA Contusion of other part of head, initial encounter (principal); S80.02XA Contusion of left knee, initial encounter; W10.8XXA Fall (on) (from) other stairs and steps, initial encounter; Z79.01 Long term (current) use of anticoagulants; I50.9 Heart failure, unspecified; Z87.891 Personal history of nicotine dependence
CPT/HCPCS: 70450; 72125; 73564; 76376; 99284